=== PATIENT | female | born 1970 | race Hispanic/Latino ===

== ENCOUNTER → 2017-07-25 | Outpatient (CLI) | payer OTHER | END | disposition home or self-care (01) | LOC: RAH 13:17 | PROVIDERS: ATTEND Obstetrics & Gynecology | DX: R59.9 Enlarged lymph nodes, unspecified (principal) | CPT/HCPCS: 76882 ==

== ENCOUNTER → 2017-10-17 | Outpatient (CLI) | payer OTHER | END | disposition home or self-care (01) | LOC: LAB 16:02 | PROVIDERS: ATTEND Obstetrics & Gynecology | DX: N95.1 Menopausal and female climacteric states (principal); R41.89 Other symptoms and signs involving cognitive functions and awareness | CPT/HCPCS: 36415; 82670; 83001; 84140 ==

== ENCOUNTER → 2017-10-19 | Outpatient (CLI) | payer OTHER | END | disposition home or self-care (01) | LOC: RAH 10:56 | PROVIDERS: ATTEND Obstetrics & Gynecology | DX: N88.8 Other specified noninflammatory disorders of cervix uteri (principal) | CPT/HCPCS: 76830 ==

== ENCOUNTER → 2018-03-23 | Outpatient (CLI) | payer OTHER | END | disposition home or self-care (01) | LOC: LAB 08:55 | PROVIDERS: ATTEND Obstetrics & Gynecology | DX: R41.89 Other symptoms and signs involving cognitive functions and awareness (principal); N95.1 Menopausal and female climacteric states; N85.01 Benign endometrial hyperplasia | CPT/HCPCS: 36415; 82670; 83001; 84140 ==

== ENCOUNTER 2019-04-02 15:20 | Inpatient (IN) | payer OTHER ==
[~2019-04-02] VITALS: Ht 157.5 cm; Wt 94.8 kg
[2019-04-02] MEDS ORDERED: SODIUM CHLORIDE 0.9% 1000ML 1,000 ML IV ONE (15:28)
[2019-04-02] MEDS ORDERED: HYDROMORPHONE 1 MG/1 ML AMP ONE ×2 (15:34→19:01)
[2019-04-02] MEDS ORDERED: ONDANSETRON HCL 4 MG/2 ML VIAL ONE ×2 (15:35→18:00)
[2019-04-02 15:40] LABS: BASOPHILS % (AUTO) 0.7 % (0.0-5.0); EOSINOPHILS % (AUTO) 0.3 % (0.0-8.0); HEMATOCRIT 44.9 % (36-48); LYMPHOCYTES % (AUTO) 17.2 % (21.0-51.0); MEAN CORPUSCULAR HEMOGLOBIN 29.7 pg (27.0-33.0); MEAN CORPUSCULAR HGB CONC 33.7 g/dL (32.0-36.0); MEAN CORPUSCULAR VOLUME 88.2 fL (79-99); MONOCYTES % (AUTO) 6.3 % (3.0-13.0); NEUTROPHILS % (AUTO) 75.5 % (40.0-77.0); PLATELET COUNT (AUTO) 253 K/uL (130-400); RED CELL DISTRIBUTION WIDTH 14.8 % (11.0-15.5); WHITE BLOOD COUNT (AUTO) 11.4 K/uL (4.8-10.8)
[2019-04-02] MEDS ORDERED: FAMOTIDINE/PF 20 MG/2 ML VIAL IV ONE (15:51)
[2019-04-02 15:57] LABS: POTASSIUM 3.5 mmol/L (3.5-5.1)
[2019-04-02 16:03] LABS: ALBUMIN 3.8 g/dL (3.5-5.0); BILIRUBIN,TOTAL 2.3 mg/dL (0.2-1.0); TOTAL PROTEIN, SERUM 7.7 g/dL (6.0-8.3)
[2019-04-02 16:06] LABS: ALANINE AMINOTRANSFERASE 309 U/L (12-78); ALBUMIN 3.8 g/dL (3.5-5.0); ASPARTATE AMINOTRANSFERASE 337 U/L (10-37); BILIRUBIN,DIRECT 1.3 mg/dL (0.0-0.3); BILIRUBIN,TOTAL 2.3 mg/dL (0.2-1.0); CREATINE KINASE, TOTAL 85 U/L (21-232); MYOGLOBIN 27 ng/mL (10-92); TOTAL PROTEIN, SERUM 7.8 g/dL (6.0-8.3); TROPONIN I < 0.04 ng/mL (0.00-0.06)
[2019-04-02 16:44] LABS: MAGNESIUM 2.3 mg/dL (1.80-2.40)
[2019-04-02 17:04] LABS: APPEARANCE,URINE Clear (CLEAR); BILIRUBIN,URINE Small (NEGATIVE); COLOR,URINE Dark Yellow (YELLOW); GLUCOSE, URINE (UA) Negative (NEGATIVE); KETONES,URINE 15 mg/dL (NEGATIVE); LEUKOCYTE ESTERASE ,URINE Negative (NEGATIVE); NITRATE,URINE Negative (NEGATIVE); OCCULT BLOOD,URINE Negative (NEGATIVE); PH,URINE 7.5 (5.0-8.0); PROTEIN,URINE Negative (NEGATIVE)
[2019-04-02 17:09] LABS: HCG,QUAL RESULT NEGATIVE (NEGATIVE)
[2019-04-02 17:17] LABS: BACTERIA,URINE Few /HPF (None Seen); RBC,URINE 0-1 /HPF (0-1); SQUAMOUS EPITHELIAL CELL,UR Few /HPF (0-2); WBC,URINE 0-1 /HPF (0-1)
[2019-04-02] MEDS ORDERED: MORPHINE SULFATE 2 MG/ML 1ML SYG ONE (22:03)
[2019-04-02 22:15] VITALS: BP 146/97
[2019-04-02] MEDS ORDERED: ONDANSETRON HCL 4 MG/2 ML VIAL IV PRN (22:15)
[2019-04-02] MEDS: SODIUM CHLORIDE 0.9% 1000ML 1,000 ML IV SCH (22:36)
[2019-04-02] MEDS: MEROPENEM 500 MG VIAL IVP SCH (23:33)
[2019-04-03] MEDS ORDERED: MORPHINE SULFATE 2 MG/ML 1ML SYG ONE (03:08)
[2019-04-03 04:00] VITALS: BP 158/101
[2019-04-03 04:36] LABS: BASOPHILS % (AUTO) 0.1 % (0.0-5.0); HEMATOCRIT 43.6 % (36-48); LYMPHOCYTES % (AUTO) 6.7 % (21.0-51.0); MEAN CORPUSCULAR HEMOGLOBIN 29.7 pg (27.0-33.0); MEAN CORPUSCULAR HGB CONC 33.2 g/dL (32.0-36.0); MEAN CORPUSCULAR VOLUME 89.4 fL (79-99); MONOCYTES % (AUTO) 2.5 % (3.0-13.0); NEUTROPHILS % (AUTO) 90.7 % (40.0-77.0); PLATELET COUNT (AUTO) 187 K/uL (130-400); RED BLOOD CELL COUNT(AUTO) 4.88 MIL/uL (4.00-5.50); RED CELL DISTRIBUTION WIDTH 14.8 % (11.0-15.5); WHITE BLOOD COUNT (AUTO) 13.3 K/uL (4.8-10.8)
[2019-04-03 05:03] LABS: AMYLASE 476 U/L (25-115); CHOLESTEROL 157 mg/dL (<200); HDL CHOLESTEROL 121 mg/dL (35-85); LDL DIRECT 89 mg/dL (0-99); LIPASE 2786 U/L (114-286); TRIGLYCERIDES 61 mg/dL (30-200)
[2019-04-03] MEDS: INSULIN HUMULIN R 100 UNIT/ML 3ML SQ SCH ×4 (05:26→21:00)
--- NOTE | 2019-04-03 07:45 | NUR ---
NOTE AAOX3. C/O ABDOMINAL DISCOMFORT. CAME IN WITH PANCREATITIS. SHE HAD CT SCAN AND THERE IS REPORT OF GALLSTONES. SHE IS NPO AND HAS IVF AT 100CC/HR. THERE IS A CARDIOLOGY CONSULT BUT WAS CANCELLED BY PRIMARY M.D. PATIENT VS STABLE. NO OTHER PROBLEMS AT THIS TIME. WAITING FOR DOCTOR TO MAKE ROUNDS.
[2019-04-03 07:49] VITALS: BP 157/85
[2019-04-03] MEDS: MORPHINE SULFATE 2 MG/ML 1ML SYG IVP PRN ×2 (08:20→12:21)
[2019-04-03] MEDS: ENOXAPARIN SODIUM 30 MG/0.3 ML SQ SCH (09:00)
[2019-04-03] MEDS: FAMOTIDINE/PF 20 MG/2 ML VIAL IV SCH ×2 (09:15→20:22)
[2019-04-03] MEDS: SODIUM CHLORIDE 0.9% 1000ML 1,000 ML IV SCH ×2 (09:15→15:54)
[2019-04-03 11:12] VITALS: BP 149/71
[2019-04-03] MEDS: MEROPENEM 500 MG VIAL IVP SCH (12:20)
[2019-04-03] MEDS ORDERED: GADODIAMIDE 10 MMOL/20 ML VIAL IV ONE (12:22)
[2019-04-03] MEDS ORDERED: KETOROLAC TROMETHAMINE 30MG/ML IM PRN (13:00)
--- NOTE | 2019-04-03 15:30 | NUR ---
INITIAL MET W PT, AAOX3, WITH [facility]OU[facility] WHO WILL PROVIDE TRANSPORT HOME . PT IS INDP, EMPLOYED, NO DME, DCP HOME, W DISCOMFORT AT THIS TIME; ANTICIPATE 2-3 DAYS FOR SYMPTOM TO RESOLVE- AND DIET OT BE RESUMED, VERBALIZED UNDERSTANDING
--- NOTE | 2019-04-03 16:26 | NUR ---
DIET EDUCATION RD provided Pancreatitis Diet education. RD reviewed reference materials with Pt. Pt with multiple questions about various foods. RD answered all Pt questions. Pt verbalized understanding. RD encouraged Pt to notify as additional questions or concerns arise. RD to continue to monitor. Please notify RD as additional nutrition concerns arise. Thank you. Addendum: 04/03/19 at [address] RD Amended: Links added.
[2019-04-03 16:51] VITALS: BP 146/78
--- NOTE | 2019-04-03 18:30 | NUR ---
NOTE HAS BEEN GETTING PAIN MEDS THROUGHOUT THE DAY AND SHE REPORTS AT THIS TIME HER PAIN IS DIFFERENT AND IT DOES NOT RADIATE TO HER LOWER BACK AND EPIGASTRIC REGION BUT RATHER IT IS LOWER ABDOMEN BUT MORE DIFFUSE. SHE HAD PAIN MEDS ADDED TO HER REGIMEN PER REQUEST BECAUSE MORPHINE WAS MAKING HER VERY NAUSEATED AND SHE GETS SEVERE CRAMPING IN THE ABDOMEN WHEN ADMINISTERED. TORADOL WAS ORDERED AND WAS MEDICATED ONCE BEFORE GOING DOWNSTAIRS FOR PROCEDURE AND SHE STATES IT HELPED HER A LOT MORE THAN MORPHINE AND DID NOT MAKE HER DROWSY. HAD MRCP DONE AND THER IS NO DILATION OF BILE DUCTS OR STONES NOTED ONLY IN THE GALLBLADDER. DR ZIMMERMAN IS STILL PENDING TO COME SEE PATIENT. DR SHEEHAN SPOKE TO HIM PERSONALLY AND EXPLAINED THE CASE.
[2019-04-03 19:52] VITALS: BP 146/87
[2019-04-03] MEDS: KETOROLAC TROMETHAMINE 30MG/ML IV PRN (20:23)
[2019-04-04] VITALS: BP 144/89
[2019-04-04] MEDS: MEROPENEM 500 MG VIAL IVP SCH ×3 (00:57→23:45)
[2019-04-04] MEDS: SODIUM CHLORIDE 0.9% 1000ML 1,000 ML IV SCH ×5 (00:57→23:48)
[2019-04-04 04:00] VITALS: BP 142/83
[2019-04-04] MEDS: INSULIN HUMULIN R 100 UNIT/ML 3ML SQ SCH ×4 (05:56→20:43)
[2019-04-04 06:15] LABS: BASOPHILS % (AUTO) 0.1 % (0.0-5.0); HEMATOCRIT 37.5 % (36-48); MEAN CORPUSCULAR HEMOGLOBIN 29.8 pg (27.0-33.0); MEAN CORPUSCULAR HGB CONC 33.7 g/dL (32.0-36.0); MEAN CORPUSCULAR VOLUME 88.3 fL (79-99); MONOCYTES % (AUTO) 5.3 % (3.0-13.0); NEUTROPHILS % (AUTO) 87.6 % (40.0-77.0); PLATELET COUNT (AUTO) 164 K/uL (130-400); RED BLOOD CELL COUNT(AUTO) 4.25 MIL/uL (4.00-5.50); RED CELL DISTRIBUTION WIDTH 15.2 % (11.0-15.5); WHITE BLOOD COUNT (AUTO) 16.2 K/uL (4.8-10.8)
[2019-04-04] MEDS: KETOROLAC TROMETHAMINE 30MG/ML IV PRN ×3 (06:22→18:27)
[2019-04-04 06:33] LABS: ALBUMIN 2.8 g/dL (3.5-5.0); BILIRUBIN,TOTAL 0.8 mg/dL (0.2-1.0); CREATININE 0.6 mg/dL (0.5-1.5); POTASSIUM 3.1 mmol/L (3.5-5.1); TOTAL PROTEIN, SERUM 6.2 g/dL (6.0-8.3)
[2019-04-04 08:00] VITALS: BP 165/93
[2019-04-04] MEDS: FAMOTIDINE/PF 20 MG/2 ML VIAL IV SCH ×2 (09:29→20:43)
[2019-04-04 12:00] VITALS: BP 136/78
[2019-04-04 12:10] LABS: HEPATITIS A ANTIBODY IGM Negative (Negative); HEPATITIS B CORE IGM Negative (Negative); HEPATITIS Bs ANTIGEN SCREEN P Negative (Negative)
[2019-04-04 16:00] VITALS: BP 150/75
[2019-04-04] MEDS: ENOXAPARIN SODIUM 30 MG/0.3 ML SQ SCH (18:28)
[2019-04-04 19:00] VITALS: BP 162/77
[2019-04-04] MEDS: HYDROCODONE/ACETAMINOPHEN 5/325 MG TAB PO PRN (23:46)
[2019-04-05] VITALS (7 sets, daily range): BP systolic 123–176; BP diastolic 72–94
[2019-04-05 05:35] LABS: BASOPHILS % (AUTO) 0.2 % (0.0-5.0); EOSINOPHILS % (AUTO) 0.3 % (0.0-8.0); HEMATOCRIT 36.5 % (36-48); LYMPHOCYTES % (AUTO) 10.2 % (21.0-51.0); MEAN CORPUSCULAR HEMOGLOBIN 30.1 pg (27.0-33.0); MEAN CORPUSCULAR HGB CONC 33.8 g/dL (32.0-36.0); MEAN CORPUSCULAR VOLUME 88.9 fL (79-99); MONOCYTES % (AUTO) 6.1 % (3.0-13.0); NEUTROPHILS % (AUTO) 83.2 % (40.0-77.0); PLATELET COUNT (AUTO) 142 K/uL (130-400); RED CELL DISTRIBUTION WIDTH 14.4 % (11.0-15.5); WHITE BLOOD COUNT (AUTO) 12.8 K/uL (4.8-10.8)
[2019-04-05 05:54] LABS: ALBUMIN 2.5 g/dL (3.5-5.0); BILIRUBIN,TOTAL 0.7 mg/dL (0.2-1.0); CREATININE 0.6 mg/dL (0.5-1.5); TOTAL PROTEIN, SERUM 5.9 g/dL (6.0-8.3)
[2019-04-05 06:18] LABS: POTASSIUM 2.9 mmol/L (3.5-5.1)
[2019-04-05] MEDS: INSULIN HUMULIN R 100 UNIT/ML 3ML SQ SCH (06:41)
[2019-04-05] MEDS: FAMOTIDINE/PF 20 MG/2 ML VIAL IV SCH ×2 (06:43→20:00)
[2019-04-05] MEDS: SODIUM CHLORIDE 0.9% 1000ML 1,000 ML IV SCH (06:45)
[2019-04-05] MEDS ORDERED: POTASSIUM CHLORIDE 10% ELIXIR 20 MEQ/15 ML UDCUP PO PRN (07:00)
[2019-04-05] MEDS: LIDOCAINE HCL-MPF 1% 2ML VIAL IV PRN (08:18)
[2019-04-05] MEDS: POTASSIUM CHLORIDE 20MEQ/100ML 100 ML IV PRN (08:18)
[2019-04-05] MEDS: HYDROCODONE/ACETAMINOPHEN 5/325 MG TAB PO PRN ×2 (08:19→15:00)
[2019-04-05] MEDS: ENOXAPARIN SODIUM 30 MG/0.3 ML SQ SCH (08:20)
[2019-04-05] MEDS ORDERED: TRAMADOL HCL 50 MG TABLET PO PRN (09:15)
[2019-04-05] MEDS: MEROPENEM 500 MG VIAL IVP SCH ×2 (11:25→23:57)
[2019-04-05] MEDS: METRONIDAZOLE 500MG/100ML BAG 100 ML IV SCH ×2 (15:00→20:11)
[2019-04-05] MEDS: KETOROLAC TROMETHAMINE 30MG/ML IV PRN (20:05)
[2019-04-05] MEDS: DEXTROSE 5 % AND 0.9 % NACL 1,000 ML IV SCH (20:11)
[2019-04-06 04:00] VITALS: BP 133/67
[2019-04-06 04:00] LABS: BASOPHILS % (AUTO) 0.2 % (0.0-5.0); HEMATOCRIT 35.8 % (36-48); LYMPHOCYTES % (AUTO) 12.7 % (21.0-51.0); MEAN CORPUSCULAR HEMOGLOBIN 29.8 pg (27.0-33.0); MEAN CORPUSCULAR HGB CONC 33.8 g/dL (32.0-36.0); MEAN CORPUSCULAR VOLUME 87.9 fL (79-99); MONOCYTES % (AUTO) 6.2 % (3.0-13.0); NEUTROPHILS % (AUTO) 79.9 % (40.0-77.0); PLATELET COUNT (AUTO) 155 K/uL (130-400); RED BLOOD CELL COUNT(AUTO) 4.07 MIL/uL (4.00-5.50); RED CELL DISTRIBUTION WIDTH 14.5 % (11.0-15.5)
[2019-04-06 04:14] LABS: ALBUMIN 2.5 g/dL (3.5-5.0); BILIRUBIN,TOTAL 0.5 mg/dL (0.2-1.0); CREATININE 0.7 mg/dL (0.5-1.5); TOTAL PROTEIN, SERUM 6.1 g/dL (6.0-8.3)
[2019-04-06 04:47] LABS: POTASSIUM 2.9 mmol/L (3.5-5.1)
[2019-04-06] MEDS: DEXTROSE 5 % AND 0.9 % NACL 1,000 ML IV SCH ×2 (05:18→09:15)
[2019-04-06] MEDS: METRONIDAZOLE 500MG/100ML BAG 100 ML IV SCH ×3 (05:18→21:36)
[2019-04-06] MEDS: LIDOCAINE HCL-MPF 1% 2ML VIAL IV PRN (05:20)
[2019-04-06] MEDS: POTASSIUM CHLORIDE 20MEQ/100ML 100 ML IV PRN (05:20)
[2019-04-06] MEDS: HYDROCODONE/ACETAMINOPHEN 5/325 MG TAB PO PRN (05:25)
[2019-04-06] MEDS: POTASSIUM CHLORIDE 20 MEQ ERTAB PO PRN ×4 (05:26→18:18)
[2019-04-06 07:49] VITALS: BP 127/69
--- NOTE | 2019-04-06 07:55 | NUR ---
NOTE AAOX3. DENIES PAIN AT THIS TIME. SHE REPORTS SOME ABDOMINAL DISCOMFORT ONLY. NO N/V TOELRATES LIQUID DIET.
[2019-04-06] MEDS: FAMOTIDINE/PF 20 MG/2 ML VIAL IV SCH ×2 (09:12→20:34)
[2019-04-06] MEDS: ENOXAPARIN SODIUM 30 MG/0.3 ML SQ SCH (09:14)
[2019-04-06 11:16] VITALS: BP 137/73
[2019-04-06] MEDS: MEROPENEM 500 MG VIAL IVP SCH ×2 (12:42→23:46)
[2019-04-06] MEDS: KETOROLAC TROMETHAMINE 30MG/ML IV PRN (12:43)
--- NOTE | 2019-04-06 15:50 | NUR ---
INITIAL MET W PT, AAOX3, WITH [facility]OU[facility] WHO WILL PROVIDE TRANSPORT HOME . PT IS INDP, EMPLOYED, NO DME, WALKER HOME, W DISCOMFORT AT THIS TIME; ANTICIPATE 2-3 DAYS FOR SYMPTOM TO RESOLVE- AND DIET OT BE REUMED, VERBALIZED UNDERSTANDING Addendum: 04/06/19 at 1553 by HAILEY ARMSTRONG RN CM Amended: Links added.
--- NOTE | 2019-04-06 16:00 | NUR ---
NOTE DR GONZALEZ CAME TO VISIT PATIENT AND HE RECOMMENDS FOLLOW UP OUTPATIENT TUESDAY FOR FUTURE GALLBLADDER SURGERY. SHE WAS MEDICATED FOR PAIN EARLIER AND SHE IS PAIN FREE AT THIS TIME. STILL TOLERATING HER DIET. IVF STOPPED AND NO MORE C/O SOB SHE DID HAVE THIS AM. PENDING READING ON CXR.
[2019-04-06 16:23] VITALS: BP 133/76
[2019-04-06 19:30] VITALS: BP 168/86
--- NOTE | 2019-04-06 19:45 | NUR ---
PM Assessment Received pt with family at the beside pt claimed just came back from ambulating around the unit. Pt reminded only of full liquid diet for now, claimed has been tolerating it well, currently denies discomfort. Also stated has not have a BM since Tuesday but then stated has not eaten anything solid yet since admission. PT confirmed awareness re: plan follow up with Dr. Gan for any surgical intervention. Pt made aware possible discharge for tomorrow.
[2019-04-06 23:07] VITALS: BP 138/79
[2019-04-07 03:30] VITALS: BP 133/76
[2019-04-07 04:32] LABS: POTASSIUM 3.4 mmol/L (3.5-5.1)
[2019-04-07] MEDS: METRONIDAZOLE 500MG/100ML BAG 100 ML IV SCH (05:19)
[2019-04-07] MEDS: POTASSIUM CHLORIDE 20 MEQ ERTAB PO PRN ×3 (07:20→12:53)
[2019-04-07 07:44] LABS: ALBUMIN 2.5 g/dL (3.5-5.0); BILIRUBIN,TOTAL 0.5 mg/dL (0.2-1.0); CREATININE 0.7 mg/dL (0.5-1.5); TOTAL PROTEIN, SERUM 6.2 g/dL (6.0-8.3)
--- NOTE | 2019-04-07 07:55 | NUR ---
NOTE AAOX3. DENIES PAIN OR DISCOMFORT. NO DISTRESS OR SOB. BBS CLEAR. NO N/V. SHE HAS BEEN TOLERATING HER LIQUID DIET. POSSIBLE DC HOME TODAY. LAB WORK APPEARS TO BE NORMAL.
[2019-04-07 08:00] VITALS: BP 141/86
[2019-04-07] MEDS: FAMOTIDINE/PF 20 MG/2 ML VIAL IV SCH (09:42)
[2019-04-07] MEDS: ENOXAPARIN SODIUM 30 MG/0.3 ML SQ SCH (09:43)
[2019-04-07 11:00] VITALS: BP 142/95
--- NOTE | 2019-04-07 15:00 | NUR ---
NOTE DISCHARGE INSTRUCTIONS GIVEN TO PATIENT AT THIS TIME. VERBALIZED UNDERSTANDING. SHE DID TOLERATE LOW FAT DIET ORDERED PER DR GONZALEZ EARLIER TODAY. SHE HAS BEEN SEEN BY DR ALVARADO WELL GREGORY CYR. REFER TO DC SUMMARY FOR DETAILS. STABLE UPON ELAVING WITH HER AND MOTHER.
== END 2019-04-07 15:48 | disposition home or self-care (01) | DRG 444 ==
LOC: EDH 15:20 → EDHIP 19:20 → 4BH 21:30
PROVIDERS: ADMIT Internal Medicine; ATTEND Internal Medicine
DX: K80.00 Calculus of gallbladder with acute cholecystitis without obstruction (principal); K85.90 Acute pancreatitis without necrosis or infection, unspecified; R65.10 Systemic inflammatory response syndrome (SIRS) of non-infectious origin without acute organ dysfunction; K76.0 Fatty (change of) liver, not elsewhere classified; E66.9 Obesity, unspecified; F17.210 Nicotine dependence, cigarettes, uncomplicated; Z68.38 Body mass index [BMI] 38.0-38.9, adult
CPT/HCPCS: 36415; 71045; 74176; 74183; 76705; 80053; 80061; 80074; 80076; 81001; 81025; 82150; 82550; 82948; 83605; 83690; 83735; 83874; 84484; 84702; 85025; 86677; 93005; A9579; G0378; J1170; J1650; J1885; J2185; J2405; J3480; J3490; J7030; J7042

== ENCOUNTER 2019-04-17 06:47 | Day surgery (SDC) | payer OTHER ==
[2019-04-13 09:05] VITALS: BP 137/74
[2019-04-13 09:39] LABS: ALBUMIN 3.6 g/dL (3.5-5.0); BILIRUBIN,DIRECT 0.1 mg/dL (0.0-0.3); BILIRUBIN,TOTAL 0.6 mg/dL (0.2-1.0); POTASSIUM 4.1 mmol/L (3.5-5.1); TOTAL PROTEIN, SERUM 7.5 g/dL (6.0-8.3)
[2019-04-13 10:10] LABS: BASOPHILS % (AUTO) 0.8 % (0.0-5.0); EOSINOPHILS % (AUTO) 3.5 % (0.0-8.0); HEMATOCRIT 42.6 % (36-48); LYMPHOCYTES % (AUTO) 24.8 % (21.0-51.0); MEAN CORPUSCULAR HEMOGLOBIN 30.4 pg (27.0-33.0); MEAN CORPUSCULAR HGB CONC 34.3 g/dL (32.0-36.0); MEAN CORPUSCULAR VOLUME 88.4 fL (79-99); MONOCYTES % (AUTO) 8.3 % (3.0-13.0); NEUTROPHILS % (AUTO) 62.6 % (40.0-77.0); NUCLEATED RED BLOOD CELLS 0.1 % (0.0-0.19); PLATELET COUNT (AUTO) 230 K/uL (130-400); RED BLOOD CELL COUNT(AUTO) 4.82 MIL/uL (4.00-5.50); RED CELL DISTRIBUTION WIDTH 14.2 % (11.0-15.5); WHITE BLOOD COUNT (AUTO) 5.7 K/uL (4.8-10.8)
--- NOTE | 2019-04-16 17:50 | NUR ---
ABNORMAL LABS ABNORMAL LABS REPORTED TO DR. GONZALEZ LIPASE 308, AST 48, ALT 93. NO FURTHER ORDERS GIVEN, MAY PROCEED WITH PLANNED PROCEDURE.
[2019-04-17] VITALS (18 sets, daily range): BP systolic 116–148; BP diastolic 67–91
[~2019-04-17] VITALS: Ht 160 cm; Wt 91.5 kg
[~2019-04-17 06:47] MED LIST: ACET-2247 PO; PEPCID PO
[2019-04-17] MEDS: LACTATED RINGERS 1000ML 1,000 ML IV SCH ×2 (08:05→08:31)
[2019-04-17] MEDS ORDERED: IBUP-2070 PO (08:07)
[2019-04-17] MEDS ORDERED: LIDOCAINE PF 2% 5ML ABBOJECT ONE (08:30)
[2019-04-17] MEDS ORDERED: SUCCINYLCHOLINE 200MG/10ML SYR ONE (08:30)
[2019-04-17] MEDS ORDERED: DEXAMETHASONE SOD PHOSPHATE 10MG/ML 1ML VIAL ONE (08:30)
[2019-04-17] MEDS ORDERED: GLYCOPYRROLATE 1 MG/5 ML SYRINGE ONE (08:32)
[2019-04-17] MEDS ORDERED: FENTANYL CITRATE PF 50 MCG/1 ML 2ML VIAL ONE (08:32)
[2019-04-17] MEDS ORDERED: ONDANSETRON HCL 4 MG/2 ML VIAL ONE ×3 (08:32→10:22)
[2019-04-17] MEDS ORDERED: MIDAZOLAM HCL 1 MG/ML 2ML VIAL ONE (08:32)
[2019-04-17] MEDS ORDERED: NEOSTIGMINE 5MG/5ML SYR IV ONE (08:32)
[2019-04-17] MEDS ORDERED: PROPOFOL 10 MG/ML 20ML VIAL IV ONE (08:32)
[2019-04-17] MEDS ORDERED: ROCURONIUM 10MG/1ML SYR 10 MG/ML ML ONE (08:34)
[2019-04-17] MEDS ORDERED: HEPARIN SODIUM 1000UNIT/ML 10ML VIAL ONE (08:42)
[2019-04-17] MEDS ORDERED: MEPERIDINE-PF 25 MG/ML SYG ONE ×3 (09:25→10:35)
--- NOTE | 2019-04-17 11:39 | NUR ---
PT. LEFT VIA WHEELCHAIR IN PVT CAR. D/C INSTRUCTIONS GIVEN TO WITH F/U APPT. NO COMPLICATION UPON D/C
== END 2019-04-17 11:39 | disposition home or self-care (01) ==
LOC: DAH 06:47
PROVIDERS: ATTEND Surgery
DX: K80.12 Calculus of gallbladder with acute and chronic cholecystitis without obstruction (principal); I10 Essential (primary) hypertension; K21.9 Gastro-esophageal reflux disease without esophagitis; E66.9 Obesity, unspecified; Z68.36 Body mass index [BMI] 36.0-36.9, adult; Z79.899 Other long term (current) drug therapy
CPT/HCPCS: 36415; 47562; 80048; 80076; 83690; 85025; 88304; A4215; A4221; A4222; A4223; A4450; A4663; A6260; C1769 ×4; J0330; J1100; J1644; J2001; J2175 ×3; J2250; J2405 ×3; J2704; J2710; J3010; J3490; J7030; J7120 ×2

== ENCOUNTER → 2020-03-26 | Outpatient (CLI) | payer OTHER ==
[~2020-03-26] MED LIST changes: +IBUP-2070 PO
[2020-03-26 09:20] LABS: BASOPHILS % (AUTO) 0.3 % (0.0-5.0); EOSINOPHILS % (AUTO) 2.9 % (0.0-8.0); LYMPHOCYTES % (AUTO) 22.3 % (21.0-51.0); MEAN CORPUSCULAR HEMOGLOBIN 28.7 pg (27.0-33.0); MEAN CORPUSCULAR HGB CONC 32.1 g/dL (32.0-36.0); MEAN CORPUSCULAR VOLUME 89.4 fL (79-99); MONOCYTES % (AUTO) 5.9 % (3.0-13.0); NEUTROPHILS % (AUTO) 68.3 % (40.0-77.0); PLATELET COUNT (AUTO) 194 K/uL (130-400); RED BLOOD CELL COUNT(AUTO) 5.26 MIL/uL (4.00-5.50); RED CELL DISTRIBUTION WIDTH 13.2 % (11.0-15.5); WHITE BLOOD COUNT (AUTO) 6.2 K/uL (4.8-10.8)
[2020-03-26 09:33] LABS: HEMOGLOBIN A1C 5.6 % (4.0-6.0)
[2020-03-26 09:41] LABS: ALBUMIN 3.8 g/dL (3.5-5.0); BILIRUBIN,TOTAL 0.6 mg/dL (0.2-1.0); CREATININE 0.9 mg/dL (0.5-1.5); TOTAL PROTEIN, SERUM 7.6 g/dL (6.0-8.3)
== END | disposition home or self-care (01) ==
LOC: LAB 08:44
PROVIDERS: ATTEND Family Medicine
DX: E78.2 Mixed hyperlipidemia (principal)
CPT/HCPCS: 36415; 80053; 80061; 83036; 85025

== ENCOUNTER → 2020-04-21 | Outpatient (CLI) | payer OTHER | END | disposition home or self-care (01) | LOC: RAH 13:54 | PROVIDERS: ATTEND Obstetrics & Gynecology | DX: N83.01 Follicular cyst of right ovary (principal); N85.00 Endometrial hyperplasia, unspecified | CPT/HCPCS: 76830 ==

== ENCOUNTER → 2020-04-24 | Outpatient (CLI) | payer OTHER | END | disposition home or self-care (01) | LOC: LAB 08:02 | PROVIDERS: ATTEND Obstetrics & Gynecology | DX: N95.1 Menopausal and female climacteric states (principal) | CPT/HCPCS: 36415; 82627; 82670; 83001; 84140; 84270; 84402; 84403 ==

== ENCOUNTER → 2020-04-30 | Outpatient (CLI) | payer OTHER | END | disposition home or self-care (01) | LOC: RAH 13:52 | PROVIDERS: ATTEND Obstetrics & Gynecology | DX: Z12.31 Encounter for screening mammogram for malignant neoplasm of breast (principal); N64.89 Other specified disorders of breast | CPT/HCPCS: 77067 ==

== ENCOUNTER → 2020-09-15 | Outpatient (CLI) | payer OTHER | END | disposition home or self-care (01) | LOC: RAH 14:59 | PROVIDERS: ATTEND Family Medicine | DX: R22.43 Localized swelling, mass and lump, lower limb, bilateral (principal); Z87.891 Personal history of nicotine dependence | CPT/HCPCS: 93970 ==

== ENCOUNTER → 2020-10-31 | Outpatient (CLI) | payer OTHER ==
[2020-10-31 08:17] LABS: BASOPHILS % (AUTO) 0.4 % (0.0-5.0); EOSINOPHILS % (AUTO) 3.1 % (0.0-8.0); HEMATOCRIT 44.6 % (36-48); LYMPHOCYTES % (AUTO) 23.7 % (21.0-51.0); MEAN CORPUSCULAR HEMOGLOBIN 28.8 pg (27.0-33.0); MEAN CORPUSCULAR HGB CONC 32.1 g/dL (32.0-36.0); MEAN CORPUSCULAR VOLUME 89.7 fL (79-99); MONOCYTES % (AUTO) 5.7 % (3.0-13.0); NEUTROPHILS % (AUTO) 66.7 % (40.0-77.0); PLATELET COUNT (AUTO) 235 K/uL (130-400); RED BLOOD CELL COUNT(AUTO) 4.97 MIL/uL (4.00-5.50); RED CELL DISTRIBUTION WIDTH 13.2 % (11.0-15.5); WHITE BLOOD COUNT (AUTO) 7.2 K/uL (4.8-10.8)
[2020-10-31 08:29] LABS: HEMOGLOBIN A1C 5.6 % (4.0-6.0)
[2020-10-31 08:38] LABS: ALBUMIN 3.8 g/dL (3.5-5.0); BILIRUBIN,TOTAL 0.5 mg/dL (0.2-1.0); CREATININE 0.9 mg/dL (0.5-1.5); POTASSIUM 3.7 mmol/L (3.5-5.1); TOTAL PROTEIN, SERUM 7.5 g/dL (6.0-8.3)
== END | disposition home or self-care (01) ==
LOC: LAB 07:40
PROVIDERS: ATTEND Family Medicine
DX: R73.03 Prediabetes (principal); E78.2 Mixed hyperlipidemia
CPT/HCPCS: 36415; 80053; 80061; 83036; 85025

== ENCOUNTER → 2020-12-23 | Outpatient (CLI) | payer OTHER | END | disposition home or self-care (01) | LOC: LAB 15:28 | PROVIDERS: ATTEND Internal Medicine Cardiovascular Disease | DX: Z20.822 Contact with and (suspected) exposure to COVID-19 (principal) | CPT/HCPCS: 87635; C9803 ==

== ENCOUNTER → 2021-06-05 | Outpatient (CLI) | payer OTHER | END | disposition home or self-care (01) | LOC: LAB 11:53 | PROVIDERS: ATTEND Obstetrics & Gynecology | DX: N85.8 Other specified noninflammatory disorders of uterus (principal) | CPT/HCPCS: 36415; 86304 ==

== ENCOUNTER → 2021-07-30 | Outpatient (CLI) | payer OTHER | END | disposition home or self-care (01) | LOC: ICE 10:31 | PROVIDERS: ATTEND Internal Medicine Cardiovascular Disease | DX: Z20.822 Contact with and (suspected) exposure to COVID-19 (principal) | CPT/HCPCS: 87635; C9803 ==

== ENCOUNTER → 2022-02-01 | Outpatient (CLI) | payer OTHER | END | disposition home or self-care (01) | LOC: ICE 09:43 | PROVIDERS: ATTEND Hospitalist | DX: Z20.822 Contact with and (suspected) exposure to COVID-19 (principal) | CPT/HCPCS: 87426 ==

== ENCOUNTER → 2022-02-08 | Outpatient (CLI) | payer OTHER | END | disposition home or self-care (01) | LOC: LAB 09:00 | PROVIDERS: ATTEND Obstetrics & Gynecology | DX: N83.299 Other ovarian cyst, unspecified side (principal) | CPT/HCPCS: 36415; 86304 ==

== ENCOUNTER → 2022-02-09 | Outpatient (CLI) | payer OTHER | END | disposition home or self-care (01) | LOC: RAH 14:43 | PROVIDERS: ATTEND Obstetrics & Gynecology | DX: N83.299 Other ovarian cyst, unspecified side (principal) | CPT/HCPCS: 76830 ==

== ENCOUNTER → 2022-05-24 | Outpatient (CLI) | payer OTHER | END | disposition home or self-care (01) | LOC: LAB 09:58 | PROVIDERS: ATTEND Obstetrics & Gynecology | DX: N83.299 Other ovarian cyst, unspecified side (principal) | CPT/HCPCS: 36415; 86304 ==

== ENCOUNTER → 2022-05-25 | Outpatient (CLI) | payer OTHER | END | disposition home or self-care (01) | LOC: RAH 15:05 | PROVIDERS: ATTEND Obstetrics & Gynecology | DX: Z12.31 Encounter for screening mammogram for malignant neoplasm of breast (principal) | CPT/HCPCS: 77067 ==

== ENCOUNTER → 2022-09-20 | Outpatient (CLI) | payer OTHER | END | disposition home or self-care (01) | LOC: RAH 11:57 | PROVIDERS: ATTEND Obstetrics & Gynecology | DX: N85.02 Endometrial intraepithelial neoplasia [EIN] (principal) | CPT/HCPCS: 76830 ==

== ENCOUNTER → 2022-11-24 | Outpatient (CLI) | payer OTHER ==
[2022-11-24 08:17] LABS: BASOPHILS % (AUTO) 0.4 % (0.0-5.0); EOSINOPHILS % (AUTO) 2.9 % (0.0-8.0); HEMATOCRIT 47.5 % (36-48); LYMPHOCYTES % (AUTO) 25.4 % (21.0-51.0); MEAN CORPUSCULAR HEMOGLOBIN 29.2 pg (27.0-33.0); MEAN CORPUSCULAR HGB CONC 32.6 g/dL (32.0-36.0); MEAN CORPUSCULAR VOLUME 89.5 fL (79-99); MONOCYTES % (AUTO) 5.6 % (3.0-13.0); NEUTROPHILS % (AUTO) 65.3 % (40.0-77.0); PLATELET COUNT (AUTO) 199 K/uL (130-400); RED BLOOD CELL COUNT(AUTO) 5.31 MIL/uL (4.00-5.50); RED CELL DISTRIBUTION WIDTH 13.4 % (11.0-15.5); WHITE BLOOD COUNT (AUTO) 7.3 K/uL (4.8-10.8)
[2022-11-24 08:34] LABS: ALBUMIN 3.6 g/dL (3.5-5.0); CREATININE 0.9 mg/dL (0.5-1.5); POTASSIUM 3.8 mmol/L (3.5-5.1); TOTAL PROTEIN, SERUM 7.4 g/dL (6.0-8.3)
== END | disposition home or self-care (01) ==
LOC: LAB 11-23 12:13
PROVIDERS: ATTEND Family Medicine
DX: I10 Essential (primary) hypertension (principal); E78.2 Mixed hyperlipidemia
CPT/HCPCS: 36415; 80053; 80061; 85025

== ENCOUNTER → 2022-12-06 | Outpatient (CLI) | payer OTHER | END | disposition home or self-care (01) | LOC: LAB 07:58 | PROVIDERS: ATTEND Family Medicine | DX: Z13.6 Encounter for screening for cardiovascular disorders (principal); Z13.89 Encounter for screening for other disorder; Z00.01 Encounter for general adult medical examination with abnormal findings; I10 Essential (primary) hypertension; R07.89 Other chest pain; R00.2 Palpitations; R35.0 Frequency of micturition | CPT/HCPCS: 36415; 83930; 83935; 84443; 84588 ==

== ENCOUNTER → 2023-03-04 | Outpatient (CLI) | payer OTHER | END | disposition home or self-care (01) | LOC: RAH 08:19 | PROVIDERS: ATTEND Family Medicine | DX: M75.52 Bursitis of left shoulder (principal); M25.512 Pain in left shoulder | CPT/HCPCS: 73030 ==

== ENCOUNTER → 2023-05-30 | Outpatient (CLI) | payer OTHER ==
[2023-05-30 12:49] LABS: BASOPHILS # (AUTO) 0.03 K/uL (0.00-0.20); BASOPHILS % (AUTO) 0.4 % (0.0-5.0); EOSINOPHILS # (AUTO) 0.22 K/uL (0.00-0.70); EOSINOPHILS % (AUTO) 2.8 % (0.0-8.0); HEMATOCRIT 46.8 % (36-48); IMMATURE GRANULOCYTE ABSOLUTE 0.02 K/uL (0-1); LYMPHOCYTES # (AUTO) 1.9 K/uL (1.0-4.8); LYMPHOCYTES % (AUTO) 24.5 % (21.0-51.0); MEAN CORPUSCULAR HEMOGLOBIN 30.1 pg (27.0-33.0); MEAN CORPUSCULAR HGB CONC 33.3 g/dL (32.0-36.0); MEAN CORPUSCULAR VOLUME 90.3 fL (79-99); MONOCYTES # (AUTO) 0.5 K/uL (0.1-1.0); MONOCYTES % (AUTO) 5.8 % (3.0-13.0); NEUTROPHILS # (AUTO) 5.1 K/uL (1.8-7.7); NEUTROPHILS % (AUTO) 66.2 % (40.0-77.0); PLATELET COUNT (AUTO) 216 K/uL (130-400); RED BLOOD CELL COUNT(AUTO) 5.18 MIL/uL (4.00-5.50); RED CELL DISTRIBUTION WIDTH 13.2 % (11.0-15.5); WHITE BLOOD COUNT (AUTO) 7.8 K/uL (4.8-10.8)
== END | disposition home or self-care (01) ==
LOC: RAH 10:30
PROVIDERS: ATTEND Obstetrics & Gynecology
DX: N93.9 Abnormal uterine and vaginal bleeding, unspecified (principal)
CPT/HCPCS: 36415; 76830; 82670; 83001; 85025

== ENCOUNTER → 2023-06-06 | Outpatient (CLI) | payer OTHER | END | disposition home or self-care (01) | LOC: RAH 13:25 | PROVIDERS: ATTEND Obstetrics & Gynecology | DX: Z12.31 Encounter for screening mammogram for malignant neoplasm of breast (principal) | CPT/HCPCS: 77067 ==

== ENCOUNTER 2023-07-27 07:13 | Day surgery (SDC) | payer OTHER ==
[2023-07-22 09:13] LABS: BASOPHILS # (AUTO) 0.04 K/uL (0.00-0.20); BASOPHILS % (AUTO) 0.5 % (0.0-5.0); EOSINOPHILS % (AUTO) 2.6 % (0.0-8.0); HEMATOCRIT 48.4 % (36-48); IMMATURE GRANULOCYTE ABSOLUTE 0.02 K/uL (0-1); MEAN CORPUSCULAR HEMOGLOBIN 29.9 pg (27.0-33.0); MEAN CORPUSCULAR HGB CONC 33.5 g/dL (32.0-36.0); MEAN CORPUSCULAR VOLUME 89.5 fL (79-99); MONOCYTES # (AUTO) 0.4 K/uL (0.1-1.0); MONOCYTES % (AUTO) 4.6 % (3.0-13.0); NEUTROPHILS # (AUTO) 5.1 K/uL (1.8-7.7); PLATELET COUNT (AUTO) 216 K/uL (130-400); RED BLOOD CELL COUNT(AUTO) 5.41 MIL/uL (4.00-5.50); RED CELL DISTRIBUTION WIDTH 13.1 % (11.0-15.5); WHITE BLOOD COUNT (AUTO) 7.7 K/uL (4.8-10.8)
[2023-07-22 09:26] LABS: INR < 0.93 (0.85-1.15); PROTHROMBIN TIME 10.5 SEC (9.6-11.6)
[2023-07-22 09:27] LABS: PARTIAL THROMBOPLASTIN TIME 29.7 SEC (26.3-35.5)
[2023-07-22 09:31] LABS: ALBUMIN 3.7 g/dL (3.5-5.0); BILIRUBIN,TOTAL 0.7 mg/dL (0.2-1.0); CREATININE 0.9 mg/dL (0.5-1.5); POTASSIUM 3.7 mmol/L (3.5-5.1); TOTAL PROTEIN, SERUM 7.7 g/dL (6.0-8.3)
[2023-07-22 09:49] VITALS: BP 138/71; PULSE 83; RESP 16
[~2023-07-27] VITALS: Ht 160 cm; Wt 100.6 kg
[2023-07-27] VITALS (20 sets, daily range): BP systolic 98–142; BP diastolic 52–93; PULSE 57–83; RESP 13–17
[2023-07-27] MEDS ORDERED: LACTATED RINGERS 1000ML 1,000 ML IV ONE (07:28)
[2023-07-27] MEDS ORDERED: CEFAZOLIN SODIUM 2 GM VIAL ONE (07:28)
[2023-07-27] MEDS ORDERED: DEXAMETHASONE SOD PHOSPHATE 4 MG/ML 1ML VIAL ONE (07:30)
[2023-07-27] MEDS ORDERED: PHENAZOPYRIDINE HCL 200 MG TABLET ONE (07:30)
[2023-07-27] MEDS ORDERED: SCOPOLAMINE HYDROBROMIDE 1 EACH ADH..PATCH TD ONE (07:31)
[2023-07-27] MEDS ORDERED: METRONIDAZOLE 500MG/100ML BAG 100 ML ONE (07:33)
[2023-07-27] MEDS ORDERED: DEXAMETHASONE SOD PHOSPHATE 10MG/ML 1ML VIAL ONE (08:16)
[2023-07-27] MEDS ORDERED: LIDOCAINE PF 100MG/5ML (2%) SYRINGE 5ML ONE (08:16)
[2023-07-27] MEDS ORDERED: SUCCINYLCHOLINE CHLORIDE 20 MG/ML 10 ML VIAL ONE (08:17)
[2023-07-27] MEDS ORDERED: ONDANSETRON 4MG INJ ONE ×3 (08:17→14:01)
[2023-07-27] MEDS ORDERED: NEOSTIGMINE METHYLSULFATE 1MG/ML IV ONE ×2 (08:17→11:28)
[2023-07-27] MEDS ORDERED: MIDAZOLAM HCL 1 MG/ML 2ML VIAL ONE (08:17)
[2023-07-27] MEDS ORDERED: FENTANYL CITRATE PF 50 MCG/1 ML 2ML VIAL ONE ×2 (08:17→12:41)
[2023-07-27] MEDS ORDERED: ROCURONIUM BROMIDE 10MG/1ML 5ML VL ONE (08:17)
[2023-07-27] MEDS ORDERED: GLYCOPYRROLATE 0.2 MG/ML 5 ML VIAL ONE (08:17)
[2023-07-27] MEDS ORDERED: PROPOFOL 10 MG/ML 20ML VIAL IV ONE (08:17)
[2023-07-27] MEDS ORDERED: BUPIVACAINE/PF 0.25% 30ML VIAL IJ ONE (08:35)
[2023-07-27] MEDS ORDERED: PHENYLEPHRINE HCL 10 MG/ML 1ML VIAL IV ONE (08:59)
[2023-07-27] MEDS ORDERED: HYDROMORPHONE 1 MG INJ ONE (09:05)
[2023-07-27] MEDS ORDERED: KETOROLAC 15MG/ML VIAL (15MG/ML) ONE (13:13)
[2023-07-27] MEDS ORDERED: ACETAMINOPHEN 1,000 MG/100 ML VIAL IV ONE (13:13)
[2023-07-27] MEDS ORDERED: MORPHINE 10MG VIAL ONE (13:57)
== END 2023-07-27 15:10 | disposition home or self-care (01) ==
LOC: DAH 07:13
PROVIDERS: ATTEND Obstetrics & Gynecology
DX: N85.00 Endometrial hyperplasia, unspecified (principal); N93.9 Abnormal uterine and vaginal bleeding, unspecified; N72 Inflammatory disease of cervix uteri; D27.1 Benign neoplasm of left ovary; D27.0 Benign neoplasm of right ovary; K63.89 Other specified diseases of intestine; E66.01 Morbid (severe) obesity due to excess calories; Z79.01 Long term (current) use of anticoagulants; Z79.899 Other long term (current) drug therapy; Z82.49 Family history of ischemic heart disease and other diseases of the circulatory system; Z83.3 Family history of diabetes mellitus; Z80.41 Family history of malignant neoplasm of ovary; Z98.890 Other specified postprocedural states; Z98.891 History of uterine scar from previous surgery; Z90.49 Acquired absence of other specified parts of digestive tract; Z98.51 Tubal ligation status; Z68.39 Body mass index [BMI] 39.0-39.9, adult
CPT/HCPCS: 58571; S2900; 36415; 80053; 81025; 84703; 85025; 85610; 85730; 86850; 86900; 86901; 88305; 88307; A4344; J0330; J1100; J1170; J1885; J2001; J2250; J2270; J2371; J2405; J2704; J2710; J3010; J3490; J7030; J7120; A4213; A4215; A4221; A4222; A4223; A4510; A4600; A4649; A4663; A4930; A6260; G0168; J0665; J0690

== ENCOUNTER → 2024-03-22 | Outpatient (CLI) | payer OTHER ==
[2024-03-22 09:32] LABS: BASOPHILS # (AUTO) 0.04 K/uL (0.00-0.20); BASOPHILS % (AUTO) 0.5 % (0.0-5.0); EOSINOPHILS # (AUTO) 0.16 K/uL (0.00-0.70); HEMATOCRIT 46.6 % (36-48); IMMATURE GRANULOCYTE ABSOLUTE 0.04 K/uL (0-1); LYMPHOCYTES # (AUTO) 1.9 K/uL (1.0-4.8); LYMPHOCYTES % (AUTO) 24.2 % (21.0-51.0); MEAN CORPUSCULAR HEMOGLOBIN 29.7 pg (27.0-33.0); MEAN CORPUSCULAR HGB CONC 32.2 g/dL (32.0-36.0); MEAN CORPUSCULAR VOLUME 92.3 fL (79-99); MONOCYTES # (AUTO) 0.4 K/uL (0.1-1.0); NEUTROPHILS # (AUTO) 5.4 K/uL (1.8-7.7); NEUTROPHILS % (AUTO) 67.8 % (40.0-77.0); PLATELET COUNT (AUTO) 215 K/uL (130-400); RED BLOOD CELL COUNT(AUTO) 5.05 MIL/uL (4.00-5.50); RED CELL DISTRIBUTION WIDTH 13.1 % (11.0-15.5); WHITE BLOOD COUNT (AUTO) 7.9 K/uL (4.8-10.8)
[2024-03-22 09:53] LABS: ALBUMIN 3.5 g/dL (3.5-5.0); BILIRUBIN,TOTAL 0.6 mg/dL (0.2-1.0); CREATININE 0.9 mg/dL (0.5-1.0); POTASSIUM 3.6 mmol/L (3.5-5.1); THYROID STIMULATING HORMONE 1.69 uIU/mL (0.36-3.74); TOTAL PROTEIN, SERUM 7.7 g/dL (6.0-8.3)
== END | disposition home or self-care (01) ==
LOC: LAB 08:02
PROVIDERS: ATTEND Family Medicine
DX: Z13.89 Encounter for screening for other disorder (principal); I10 Essential (primary) hypertension; R07.89 Other chest pain; E78.2 Mixed hyperlipidemia; E55.9 Vitamin D deficiency, unspecified
CPT/HCPCS: 36415; 80053; 80061; 82306; 84443; 85025

== ENCOUNTER → 2024-06-08 | Outpatient (CLI) | payer OTHER ==
--- NOTE | 2024-06-08 09:58 | HMCIMG ---
MAMMO SCREENING BILATERAL HISTORY: Screening mammogram. COMPARISON: 06/06/2023 TECHNIQUE: Bilateral screening mammogram with CAD was performed with craniocaudal and mediolateral oblique projections. FINDINGS: There are scattered areas of fibroglandular density. There is no evidence of a dominant mass, or suspicious microcalcification. There is no evidence of nipple retraction or skin thickening. IMPRESSION: 1. Stable mammogram. Patient was entered into a reminder system with a target due date for their next mammogram. BI-RADS: CATEGORY 2: BENIGN FINDINGS Recommend monthly self breast exam as well as annual clinical examination. A negative x-ray should not delay biopsy if a dominant or clinically suspicious mass is present, since 8-10% of cancers are not identified by mammography. Dense breasts particularly, may obscure an underlying neoplasm. Some of these may be detected clinically and therefore, clinical examination is an essential part of breast evaluation.
== END | disposition home or self-care (01) ==
LOC: RAH 08:04
PROVIDERS: ATTEND Obstetrics & Gynecology
DX: Z12.31 Encounter for screening mammogram for malignant neoplasm of breast (principal); R92.30 Dense breasts, unspecified
CPT/HCPCS: 77067